=== PATIENT | male | born 1985 | race Caucasian/White ===

== ENCOUNTER 2017-09-02 10:19 | Emergency (ER) | payer OTHER ==
[~2017-09-02] VITALS: Ht 165.1 cm; Wt 79.4 kg
[2017-09-02 10:19] VITALS: BP 104/78
--- NOTE | 2017-09-02 11:03 | NUR ---
VERBAL ORDER FROM DR DANIEL MACKENZIE 4 MG ODT X1
== END 2017-09-02 11:05 ==
LOC: ER 10:23
DX: F15.10 Other stimulant abuse, uncomplicated (principal); R11.0 Nausea; M54.5 Low back pain; R79.89 Other specified abnormal findings of blood chemistry; E11.9 Type 2 diabetes mellitus without complications
CPT/HCPCS: 82962; 99283; A4606; Q0162; Z7610